=== PATIENT | male | born 1960 | race Caucasian/White ===

== ENCOUNTER 2017-01-24 14:26 | Day surgery (SDC) | payer OTHER ==
[~2017-01-24] VITALS: Ht 177.8 cm; Wt 66.3 kg
[2017-01-24] VITALS (13 sets, daily range): BP systolic 124–152; BP diastolic 58–79; PULSE 43–52; RESP 15–31; Ht 177.8 cm; Wt 66.3 kg
--- NOTE | 2017-01-24 15:04 | HPN ---
Date/Time of Note Date/Time of Note DATE: 01/24/17 TIME: 15:04 Interval H&P Admission Note Pt. seen H&P reviewed: No system changes FEMI HIGGINS Jan 24, 2017 15:04
[2017-01-24] MEDS ORDERED: POLYMYXIN/BACITRACIN 1L IRRIG ONE (15:49)
[2017-01-24] MEDS ORDERED: LIDOCAINE 1% (STERILE-PAK) 30 ML INJ ONE (15:50)
[2017-01-24] MEDS ORDERED: BUPIVACAINE 0.5% (SDV) 30 ML INJ ONE (15:50)
[2017-01-24] MEDS ORDERED: FENTAnyl 50 MCG/ML VIAL ONE (15:58)
[2017-01-24] MEDS ORDERED: CEFAZOLIN 1 GM INJ ONE (16:07)
[2017-01-24] MEDS ORDERED: LIDOCAINE 2% (SDV) 5 ML INJ ONE (16:07)
[2017-01-24] MEDS ORDERED: PROPOFOL 20 ML ONE ×2 (16:07→16:17)
[2017-01-24] MEDS ORDERED: ROCURONIUM 50 MG INJ ONE (16:07)
[2017-01-24] MEDS ORDERED: SUCCINYLCHOLINE CHLORIDE 100 MG/5 ML SYG IV ONE (16:07)
[2017-01-24] MEDS ORDERED: SUGAMMADEX SODIUM 200 MG/2 ML VIAL IV ONE (16:24)
--- NOTE | 2017-01-24 20:30 | OPR ---
DATE OF OPERATION: 01/24/2017 SURGEON: Salazar Stroud MD ANESTHESIA: General. PREOPERATIVE DIAGNOSES: 1. Left elbow olecranon bursitis, chronic. 2. Left elbow olecranon osteophyte/spur. POSTOPERATIVE DIAGNOSES: 1. Left elbow olecranon bursitis, chronic 2. Left elbow olecranon osteophyte/spur. OPERATION PERFORMED: 1. Excision of left elbow olecranon bursa. 2. Excision of left elbow olecranon osteophyte/bone spur. OPERATIVE FINDINGS: Complex left elbow bursal inflammation with turbid colored fluid with increased viscosity and large olecranon bone spur/osteophyte. INDICATION FOR PROCEDURE: A 56-year-old male with longstanding left elbow pain and swelling. He has failed conservative management including repeat aspiration. He elected to proceed with surgical excision of the bursa and excision of the underlying olecranon osteophyte understanding the risks, benefits. DESCRIPTION OF PROCEDURE: The patient was seen in the preoperative area and all further questions were answered. Again, he gave informed consent understanding the risks and benefits. He was taken to the operative suite and placed in supine position. He was placed under general anesthesia and 2 g of Ancef IV given. Tourniquet placed on left upper extremity and left upper extremity was prepped with ChloraPrep stick and draped in the usual sterile fashion. Esmarch bandage was used to exsanguinate the extremity and tourniquet inflated to 250 mmHg. A curvilinear incision was made over the posterior elbow at the olecranon with the apex of the curve on the lateral aspect. Sharp dissection was carried down through skin and subcutaneous tissue. There was significant scar tissue and adhesions between the deep dermis and the underlying bursa. These were dissected away and the bursa was revealed. The bursa was dissected circumferentially with care taken to maintain full thickness skin flaps. After the bursa was completely surrounded, it was excised off of the triceps tendon and olecranon and was excised as a whole. The inside of the bursa had dark brown, thick liquid/substance. Because of this it was sent off for culture as well as for pathology specimen and crystals. Also, because there was a question of infection, the wound was then copiously irrigated with 3 L of saline. After copious irrigation, the triceps tendon was incised longitudinally and the olecranon bone spur was identified. This was dissected around to reveal both the proximal, medial, and lateral aspects of the bone spur and this was rongeured down to a nice smooth bony surface. Bone wax was placed and the wound was again copiously irrigated. The deep dermis closed with 4-0 Monocryl and skin with 4-0 nylon. Xeroform placed over the wound followed by sterile gauze, Webril and a long-arm splint with the arm flexed to 80 degrees. Tourniquet deflated after 41 minutes and the patient was awakened from anesthesia. He was taken to the postoperative suite in stable condition and tolerated the procedure well without complication. SPECIMENS: Left elbow olecranon bursa. ESTIMATED BLOOD LOSS: 5 cc. COUNTS: Sponge, instrument, and needle counts correct. TOURNIQUET TIME: 41 minutes. CONDITION ON DISCHARGE: Stable. Dictated By: Salazar Stroud MD /dustin/sascha /Document#: [id number]
== END 2017-01-24 18:20 | disposition home or self-care (01) ==
LOC: SDS 14:26
PROVIDERS: ATTEND Orthopaedic Surgery Hand Surgery
DX: M70.32 Other bursitis of elbow, left elbow (principal); M25.722 Osteophyte, left elbow; M77.8 Other enthesopathies, not elsewhere classified
CPT/HCPCS: 24105; 24120; 87070; 87075; 87102; 87116; J0690; J3010; J7999; Z7512; Z7610; 88305